=== PATIENT | female | born 1975 | race Caucasian/White ===

== ENCOUNTER 2019-07-19 22:32 | Emergency (ER) | payer OTHER, SELFPAY ==
--- NOTE | ~2019-07-19 | XR_ITS ---
EXAMINATION: XR foot LT 2V DATE: 07/19/2019 22:58 INDICATION: Left foot injury and pain and swelling. TECHNIQUE: 2 views of left foot were obtained. COMPARISON: None. FINDINGS: Bone alignment is normal. No fracture. There is mild osteoarthritis of first metatarsophala ngeal joint. IMPRESSION: 1. Mild osteoarthritis of first metatarsophalangeal joint. Reviewed, dictated and finalized at location A. ILE SAW OPERATOR
[2019-07-19 22:35] VITALS: BP 149/71; PULSE 94; RESP 16; TEMP 36.4; O2SAT 100
--- NOTE | 2019-07-19 23:44 | ED.LOWEXIN ---
HPI - Extremity Injury (Lower) General Chief Complaint: Extremity Injury, Lower Stated Complaint: fell down stairs, left foot pain Time Seen by Provider: 07/19/19 23:22 Source: patient and RN notes reviewed Mode of arrival: ambulatory Limitations: no limitations History of Present Illness HPI Narrative: Pt is a 43 y/o female who presents to the ED with c/o lt foot injury happening this evening. She notes that she was standing on the second to last stair this evening when she accidentally mis-stepped and rolled her lt ankle. Pt reports having pain and swelling in the lateral aspect of her lt foot ever since the injury. She denies any head injury or LOC during the fall. Pt notes that she took 600 mg of Ibuprofen for her symptoms, and states that the medication provided her mild relief from her pain. MD complaint: foot injury Injury: Left: foot Type of Injury: other (rolling of ankle) Place: home Context: fall Associated symptoms: swelling (swelling in lateral lt foot) Other symptoms: none Treatments prior to arrival: NSAIDS (Ibuprofen 600 mg) Related Data Home Medications Medication Instructions Recorded Confirmed atorvastatin 10 mg tablet 10 mg PO DAILY 06/24/19 cetirizine 10 mg tablet 10 mg PO DAILY 06/24/19 cholecalciferol (vitamin D3) 50 2,000 unit PO DAILY 06/24/19 mcg (2,000 unit) tablet ketotifen fumarate 0.025 % (0.035 1 drop EACH EYE BID 06/24/19 %) eye drops norethindrone 1 mg-ethinyl 1 tablet PO DAILY 06/24/19 estradiol 10 mcg (24)-iron 10 mcg(2) tablet Allergies Allergy/AdvReac Type Severity Reaction Status Date / Time No Known Allergies Allergy Mild Unverified 09/03/08 20:03 Review of Systems Review of Systems: All systems reviewed & are unremarkable except as noted in HPI and below Musculoskeletal: Musculoskeletal: Reports other (lt lateral foot pain; swelling in lt lateral foot) Neurologic: Denies other (head injury; LOC) [facility] Past Medical History Medical History hemorrhage Surgical History Surgical History No history of previous surgery Family History Family History (Updated 11/16/17 @ 09:19 by DOCTOR UNKNOWN) Grandparent Diabetes mellitus Hypertension Family history of coronary artery disease Mother Family history of elevated blood lipids Family history of malignant neoplasm of breast in first degree relative, Onset Age: 69 Social History Social History Smoking status: Never smoker Alcohol intake: never Gender identity (if verbalized by the patient): Female Exam Const: General: cooperative, healthy appearing, comfortable, no acute distress, well developed, alert and awake; No confusion Orientation/consciousness: oriented to person, oriented to place, oriented to time, patient oriented x3 and No confusion Limitations: no limitations Resp: Effort & Inspection: normal respiratory effort, able to speak in complete sentences, no respiratory distress and not tachypneic Auscultation: clear to auscultation bilaterally, no crackles, no rales, no rhonchi and no wheezes Cardio: Rate: regular rate Rhythm: regular rhythm GI: Inspection: normal to inspection GI Palp: No abdominal tenderness, Yes Soft to palpation, No Tenderness to palpation present (GI), No Guarding due to palpation present (GI), No Rigid due to palpation and No Rebound tenderness present Auscultation: normal bowel sounds Back/Spine/Pelvis: Back: no CVA tenderness Skin: General skin exam: normal color, no rashes or lesions noted, elasticity normal and turgor normal Neuro: General: oriented to person, oriented to place, oriented to time, patient oriented x3, tone normal, moves all extremities, Normal light touch and pain sensation, no meningeal signs, no focal motor deficits, CN's II-XI intact bilaterally and No confusion Cran
[2019-07-20 00:28] VITALS: BP 128/77; PULSE 77; RESP 18; O2SAT 99
== END 2019-07-20 00:31 | disposition home or self-care (01) ==
PROVIDERS: Emergency Provider Emergency Medicine
DX: S93.602A Unspecified sprain of left foot, initial encounter (principal); X50.9XXA Other and unspecified overexertion or strenuous movements or postures, initial encounter
CPT/HCPCS: 73620; 99283

== ENCOUNTER → 2019-09-29 13:34 | Outpatient (CLI) | payer OTHER, SELFPAY ==
--- NOTE | ~2019-09-29 | MR_ITS ---
EXAMINATION: MR ankle LT wo con DATE: 09/29/2019 14:21 INDICATION: Displaced fracture of the anterior process of the left calcaneus. Left heel pain and limi michaelle range of motion. TECHNIQUE: Magnetic resonance imaging (MRI) of the left ankle was performed without intravenous contr ast. Sequences included sagittal, coronal, and axial proton-density weighted fast spin echo without a nd with fat saturation. COMPARISON: Left foot and ankle radiographs dated 09/05/2019 and 07/19/2019 FINDINGS: Medial ankle ligaments: Deep and superficial deltoid ligaments as well as the spring ligament are normal. Lateral ankle ligaments: The anterior and posterior inferior tibiofibular ligaments are normal. The anterior talofibular, calc aneofibular and posterior talofibular ligaments are normal. Tendons: Achilles tendon is normal. Fusiform thickening of the peroneus longus tendon centered at the retromal leolar groove res habilitation assistant with mild tendinopathy without discrete tear. The peroneus longus tendon at t he retromalleolar groove is within the U-shaped peroneus brevis tendon consistent with incomplete spl it tear of the peroneus brevis tendon. The tibialis anterior and extensor hallucis longus and extenso r digitorum longus tendons are normal. The tibialis posterior, flexor digitorum longus and flexor patricio lucis longus tendons are normal. Plantar fascia: Plantar aponeurosis is normal. Bones/other: There is mild marrow edema at the anterior process of the calcaneus along the inferomedial articular surface of the calcaneocuboid joint without evident fracture line which given history of prior trauma likely represents a bone contusion. There is thickening and increased signal of the dorsal calcaneoc uboid and bifurcate ligaments as well as of the dorsal capsule of the calcaneonavicular joint without a clearly defined complete fluid signal intensity tear defect consistent with likely partial or heal ing tears. Mild edema in the overlying the proximal extensor brevis muscle belly which could be eithe r associated reactive edema or low-grade muscle strain. Fluid: Small talonavicular joint effusion with mild increased fluid in the recess at the dorsolateral and in ferolateral margins of the joint space. No other abnormal fluid collections identified. IMPRESSION: 1. Constellation of findings consistent with an inversion/plantar flexion injury of the Chopart joint including likely partial tears of the dorsal calcaneocuboid and biphasic at ligaments and dorsal cap saw of the talonavicular joint, bone contusion without discrete fracture line along the inferolatera l aspect of the calcaneus at the calcaneocuboid joint and possible low-grade sprain of the proximal e xtensor brevis muscle belly. 2. Partial longitudinal split tear of the peroneus brevis tendon and tendinopathy without discrete te ar of the peroneus longus tendon. Reviewed, dictated and finalized at location A. IMPRESSION: 1. Constellation of findings consistent with an inversion/plantar flexion injur y of the Chopart joint including likely partial tears of the dorsal calcaneocub oid and biphasic at ligaments and dorsal capsule of the talonavicular joint, martin ne contusion without discrete fracture line along the inferolateral aspect of t he calcaneus at the calcaneocuboid joint and possible low-grade sprain of the p roximal extensor brevis muscle belly. 2. Partial longitudinal split tear of the peroneus brevis tendon and tendinopat hy without discrete tear of the peroneus longus tendon.
== END ==
PROVIDERS: PCP Family Medicine; Visit Provider Orthopaedic Surgery
DX: S92.022A Displaced fracture of anterior process of left calcaneus, initial encounter for closed fracture (principal); R93.7 Abnormal findings on diagnostic imaging of other parts of musculoskeletal system; S96.812A Strain of other specified muscles and tendons at ankle and foot level, left foot, initial encounter
CPT/HCPCS: 73721

== ENCOUNTER → 2021-08-04 14:18 | Outpatient (CLI) | payer OTHER, SELFPAY ==
--- NOTE | ~2021-08-04 | MM_ITS ---
EXAMINATION: MM screening pam BI w osmar HISTORY: Screening TECHNIQUE: Craniocaudal and mediolateral oblique 3-D tomosynthesis images were obtained and synthetic 2-D images were generated. CAD analysis was submitted and interpreted. COMPARISON: No prior mammogram is available for comparison at this institution. BREAST PARENCHYMAL COMPOSITION: The breasts are heterogeneously dense, which may obscure small masses . FINDINGS: There is no evidence of suspicious mass, calcification, or architectural distortion to sugg est malignancy in either breast. There has been no suspicious interval change. IMPRESSION: 1. No mammographic evidence of malignancy. 2. Recommend routine screening mammography in one year. BI-RADS Category 1: Negative Reviewed, dictated and finalized at location A. RMAN
== END ==
PROVIDERS: PCP Family Medicine; Visit Provider Family Medicine
DX: Z12.31 Encounter for screening mammogram for malignant neoplasm of breast (principal)
CPT/HCPCS: 77063; 77067

== ENCOUNTER 2021-12-12 21:06 | Emergency (ER) | payer OTHER, SELFPAY ==
--- NOTE | ~2021-12-12 | CT_ITS ---
EXAMINATION: CT BRAIN W/O DATE: 12/12/2021 21:51 INDICATION: Status post fall. TECHNIQUE: Computed tomography (CT) of the head was performed without intravenous contrast. The dose- length product was 605.33 mGy-cm. Automated exposure control and iterative reconstruction technique w ere employed. COMPARISON: No prior studies for comparison. FINDINGS: Normal brain parenchymal volume for age. Normal stewart-white differentiation. No acute intrac ranial hemorrhage, infarction, mass or mass effect. No ventriculomegaly or midline shift. Midline sagittal images demonstrate a normal corpus callosum, c raniovertebral junction and sella turcica. Basilar cisterns are patent. Paranasal sinuses and mastoids are pneumatized. No depressed skull fractures. IMPRESSION: 1. No acute intracranial abnormality. Reviewed, dictated and finalized at location A.
[2021-12-12 21:12] VITALS: BP 147/98; PULSE 91; RESP 18; TEMP 36.7; O2SAT 100
[2021-12-12] MEDS: LIDO 1%/EPINEPHRINE 1:100,000 20 ML VIAL 10 ML INFILTRATE (22:57)
--- NOTE | 2021-12-12 23:17 | ED.WOUNDLAC ---
HPI - Wound/Laceration General Chief Complaint: Wound/Laceration Stated Complaint: fall hit head Time Seen by Provider: 12/12/21 21:31 Source: patient History of Present Illness HPI narrative: Patient was walking in her house when she tripped and fell she struck her head on the knob of a dresser she noted immediate bleeding and called her family for assistance. She denied any loss of consciousness denies any use of blood thinners reports pain localized where she struck her head but denies any changes in vision blurry vision focal numbness or weakness denies any nausea or vomiting. Her family drove her to the ER for further evaluation. Related Data Home Medications Medication Instructions Recorded Confirmed cetirizine 10 mg tablet (Zyrtec) 10 mg PO DAILY 06/24/19 06/16/21 cholecalciferol (vitamin D3) 50 2,000 unit PO DAILY 06/24/19 06/16/21 mcg (2,000 unit) tablet norethindrone 1 mg-ethinyl 1 tablet PO DAILY 06/24/19 06/16/21 estradiol 10 mcg (24)-iron 10 mcg(2) tablet (Lo Loestrin Fe) Allergies Allergy/AdvReac Type Severity Reaction Status Date / Time No Known Allergies Allergy Mild Verified 06/16/21 13:37 Review of Systems Review of Systems: CONSTITUTIONAL: Denies fever, chills, or sweats. EYES: Denies visual changes, redness, or discharge. ENT: Denies rhinorrhea, congestion, sore throat, or otalgia. CARDIOVASCULAR: Denies chest pain, palpitations, or edema. RESPIRATORY: Denies cough or dyspnea. GASTROINTESTINAL: Denies abdominal pain, nausea, vomiting, or diarrhea. GENITOURINARY: Denies dysuria or hematuria. SKIN: Denies rash or itching. MUSCULOSKELETAL: Denies back pain, joint pain, or myalgia. NEUROLOGIC: Denies numbness, dizziness, or weakness. PSYCHIATRIC: Denies anxiety or depression. All systems reviewed & are unremarkable except as noted in HPI and below PMFSH Past Medical History Medical History (Updated 12/13/21 @ 00:00 by Background Daemon) Calcaneus fracture, left hemorrhage Seasonal allergies Sprain of foot, left (~06/2019) Vision abnormalities Surgical History Surgical History History of appendectomy No history of previous surgery Family History Family History Grandparent Diabetes mellitus Hypertension Family history of coronary artery disease Mother Family history of elevated blood lipids Family history of malignant neoplasm of breast in first degree relative, Onset Age: 69 Social History Social History Alcohol intake: never Gender identity (if verbalized by the patient): Female Exam Narrative: GENERAL: Well-appearing, well-nourished, and in no acute distress. HEAD: Normocephalic, stellate laceration above the right orbit bleeding controlled no deep space tissue identified EYES: PERRLA and EOMI. no entrapment ENT: Nares clear, no rhinorrhea or epistaxis. Mucous membranes moist. NECK: Supple. No masses. No JVD no midline tenderness EXTREMITIES: Normal range of motion. No edema. SKIN: Warm, dry, no rash. NEURO: Cranial nerves II through XII are intact patient has 5 out of 5 strength in all extremities sensation intact to light touch in all extremities alert and oriented x3. PSYCH: Normal mood and affect. Course Reevaluation(s) Reevaluation #1: Patient tolerated laceration repair well results and plan reviewed with patient. Patient is comfortable outpatient plan. Date: 12/12/21 Time: 23:22 Vital Signs Vital signs: Vital Signs Temperature 36.7 C 12/12/21 21:12 Pulse Rate 91 12/12/21 21:12 Respiratory Rate 18 12/12/21 21:12 Blood Pressure 147/98 H 12/12/21 21:12 Pulse Oximetry 100 12/12/21 21:12 Oxygen Delivery Room Air 12/12/21 21:12 Temperature 36.7 C 12/12/21 21:12 Pulse Rate 91 12/12/21 21:12 Respiratory Rate 18 12/12/21 21:12 Blood Pres
== END 2021-12-12 23:46 | disposition home or self-care (01) ==
PROVIDERS: Emergency Provider Emergency Medicine; PCP Family Medicine
DX: S01.111A Laceration without foreign body of right eyelid and periocular area, initial encounter (principal); W01.190A Fall on same level from slipping, tripping and stumbling with subsequent striking against furniture, initial encounter
CPT/HCPCS: 12001; 12011; 70450; 99284

== ENCOUNTER → 2022-10-19 10:22 | Outpatient (CLI) | payer OTHER, SELFPAY ==
--- NOTE | ~2022-10-19 | XR_ITS ---
EXAMINATION: XR elbow RT min 3V INDICATION: Right elbow pain TECHNIQUE: Four views of the right elbow are obtained. COMPARISON: None available FINDINGS: No fracture, dislocation, or subluxation. The bones, soft tissues, and joint spaces are nor mal. IMPRESSION: 1. No acute osseous abnormality. Reviewed, dictated and finalized at location L.
== END ==
PROVIDERS: PCP Family Medicine; Visit Provider Family Medicine
DX: M25.521 Pain in right elbow (principal)
CPT/HCPCS: 73080

== ENCOUNTER 2023-09-26 14:58 | Outpatient (CLI) | payer OTHER, SELFPAY ==
--- NOTE | ~2023-09-26 | MM_ITS ---
EXAMINATION: MM screening pam BI w osmar HISTORY: Screening mammogram TECHNIQUE: Craniocaudal and mediolateral oblique 3-D tomosynthesis images were obtained and synthetic 2-D images were generated. CAD analysis was submitted and interpreted. COMPARISON: 08/04/2021 bilateral screening mammogram BREAST PARENCHYMAL COMPOSITION: The breasts are heterogeneously dense, which may obscure small masses . FINDINGS: There is no evidence of suspicious mass, calcification, or architectural distortion to sugg est malignancy in either breast. There has been no suspicious interval change. IMPRESSION: 1. No mammographic evidence of malignancy. 2. Recommend routine screening mammography in one year. BI-RADS Category 1: Negative Reviewed, dictated and finalized at location A.
== END 2023-09-26 14:59 | disposition home or self-care (01) ==
LOC: CHSIMG 15:00
PROVIDERS: PCP Family Medicine; Visit Provider Family Medicine
DX: Z12.31 Encounter for screening mammogram for malignant neoplasm of breast (principal)
CPT/HCPCS: 77063; 77067

== ENCOUNTER 2024-01-25 09:10 | Outpatient (CLI) | payer OTHER, SELFPAY ==
--- NOTE | ~2024-01-25 | CT_ITS ---
EXAMINATION: CTA chest PE protocol DATE: 01/25/2024 09:36 INDICATION: Shortness of breath TECHNIQUE: Computed tomography (CT) pulmonary angiogram of the chest was performed with 100 mL Omnipa que-350 intravenous contrast. Additional 3D reconstructions utilizing coronal maximum intensity proje ction (MIP) were performed. Automated exposure control and iterative reconstruction technique were em ployed. The dose-length product was 265.24 mGy-cm. COMPARISON: None FINDINGS: No pulmonary embolism minimal biapical pleural-parenchymal scarring and minimal dependent atelectasis in both lower lobes. No pneumonia, pulmonary edema, pleural effusion or pneumothorax. Heart size is normal. No pericardial effusion. Thoracic aorta is normal in caliber with no dissection. No pathologi sissy enlarged thoracic lymphadenopathy. 5.5 cm well-defined fluid attenuation cyst at the cephalad a spect of the left hepatic lobe. Visualized upper abdomen is otherwise unremarkable. Mild lower thorac ic levocurvature with moderate spondylosis and chronic mild anterior wedging of a few mid thoracic ve rtebral bodies. IMPRESSION: 1. No pulmonary embolism or other acute cardiopulmonary disease. Reviewed, dictated and finalized at location A.
[2024-01-25 11:14] LABS: Basophils Percent Auto 0.5 % (0.2-1.2); Eosinophils Absolute Auto 0.1 K/mm3 (0-0.3); Eosinophils Percent Auto 1.6 % (0-4.4); Hematocrit 42.8 % (37.0-47.0); Hemoglobin 14.3 g/dL (12.0-15.0); Immature Granulocyte Absolute 0.02 K/mm3 (0.00-0.031); Immature Granulocyte Percent A 0.4 % (0-0.5); Lymphocytes Absolute Auto 1.46 K/mm3 (0.9-3.2); Lymphocytes Percent Auto 26.4 % (18.3-44.2); Mean Corpuscular HGB Conc 33.4 g/dl (32-36); Mean Corpuscular Volume 89.9 fl (80-100); Mean Platelet Volume 9.6 fl (7.4-10.4); Monocytes Absolute Auto 0.5 K/mm3 (0.1-0.6); Monocytes Percent Auto 8.1 % (2.6-8.5); Neutrophils Absolute Auto 3.5 K/mm3 (1.3-6.7); Platelet Count Result 295 k/mm3 (150-375); Red Blood Count 4.76 M/mm3 (4.2-5.4); Red Cell Distribution Width 12.2 % (11.5-14.5); White Blood Count 5.5 K/mm3 (4.5-10.0)
[2024-01-25 11:31] LABS: Alanine Aminotransferase 18 U/L (6-35); Albumin Level 4.6 g/dL (3.5-5.1); Alkaline Phosphatase 73 U/L (38-126); Anion Gap 11 mmol/L (4-12); Aspartate Amino Transferase 22 U/L (14-36); Bilirubin,Total 0.5 mg/dL (0.2-1.3); Blood Urea Nitrogen 10 mg/dL (7-17); Calcium 8.8 mg/dL (8.4-10.2); Carbon Dioxide 26 mmol/L (22-30); Chloride 102 mmol/L (98-107); Estimated Glomerular Filt Rate > 60; Glucose 87 mg/dL (65-110); Magnesium 2.2 mg/dL (1.6-2.3); Potassium 3.9 mmol/L (3.4-5.0); Sodium 139 mmol/L (137-145)
[2024-01-30 12:33] LABS: Vitamin D 1,25 (OH)2 Total 34 pg/mL (18-72); Vitamin D2 1,25 (OH)2 <8 pg/mL; Vitamin D3 1,25 (OH)2 34 pg/mL
== END 2024-01-25 09:11 | disposition home or self-care (01) ==
PROVIDERS: PCP Family Medicine; Visit Provider Nurse Practitioner Family
DX: Z00.00 Encounter for general adult medical examination without abnormal findings (principal); R42 Dizziness and giddiness; R06.02 Shortness of breath; E78.00 Pure hypercholesterolemia, unspecified; E55.9 Vitamin D deficiency, unspecified; R07.9 Chest pain, unspecified; E03.9 Hypothyroidism, unspecified; E53.8 Deficiency of other specified B group vitamins; Z78.9 Other specified health status
CPT/HCPCS: 36415; 71275; 80053; 82607; 82652; 83735; 84443; 85025; Q9967